=== PATIENT | female | born 1990 | race Two or more races ===

== ENCOUNTER 2022-05-14 10:37 | Emergency (ER) | payer OTHER ==
[~2022-05-14] VITALS: Ht 162.6 cm; Wt 83.9 kg
[2022-05-14] MEDS ORDERED: PRENA1 TRUE CO1 EACH (11:05)
== END 2022-05-14 15:18 | disposition home or self-care (01) ==
LOC: ER 10:37
DX: O20.9 Hemorrhage in early pregnancy, unspecified (principal); Z3A.09 9 weeks gestation of pregnancy; J45.909 Unspecified asthma, uncomplicated

== ENCOUNTER 2022-06-13 08:34 | Outpatient (CLI) | payer OTHER ==
[~2022-06-13 08:34] MED LIST: PRENA1 TRUE CO1 EACH
== END 2022-06-13 09:35 | disposition home or self-care (01) ==
LOC: PRENATAL 08:34
PROVIDERS: ATTEND Obstetrics & Gynecology Maternal & Fetal Medicine
DX: O36.80X0 Pregnancy with inconclusive fetal viability, not applicable or unspecified (principal); Z3A.13 13 weeks gestation of pregnancy

== ENCOUNTER 2022-08-01 16:42 | Emergency (ER) | payer OTHER ==
[~2022-08-01] VITALS: Ht 162.6 cm; Wt 89.8 kg
== END 2022-08-01 19:31 | disposition home or self-care (01) ==
LOC: ER 16:42
DX: G44.209 Tension-type headache, unspecified, not intractable (principal)

== ENCOUNTER 2022-08-02 08:05 | Outpatient (CLI) | payer OTHER | END 2022-08-02 09:15 | disposition home or self-care (01) | LOC: PRENATAL 08:05 | PROVIDERS: ATTEND Obstetrics & Gynecology Maternal & Fetal Medicine | DX: O35.9XX0 Maternal care for (suspected) fetal abnormality and damage, unspecified, not applicable or unspecified (principal); O35.3XX0 Maternal care for (suspected) damage to fetus from viral disease in mother, not applicable or unspecified; Z3A.21 21 weeks gestation of pregnancy ==

== ENCOUNTER 2022-10-08 19:21 | Outpatient (CLI) | payer OTHER | END 2022-10-09 18:11 | disposition home or self-care (01) | LOC: OBS/DEL 19:21 | PROVIDERS: ATTEND Obstetrics & Gynecology | DX: O26.893 Other specified pregnancy related conditions, third trimester (principal); N89.8 Other specified noninflammatory disorders of vagina; Z3A.30 30 weeks gestation of pregnancy ==

== ENCOUNTER 2022-11-12 14:27 | Outpatient (CLI) | payer OTHER | END 2022-11-13 09:59 | disposition home or self-care (01) | LOC: OBS/DEL 14:27 | PROVIDERS: ATTEND Obstetrics & Gynecology | DX: O47.03 False labor before 37 completed weeks of gestation, third trimester (principal); Z3A.35 35 weeks gestation of pregnancy; Z20.822 Contact with and (suspected) exposure to COVID-19 ==

== ENCOUNTER 2022-11-14 01:39 | Outpatient (CLI) | payer OTHER | END 2022-11-14 09:33 | disposition home or self-care (01) | LOC: OBS/DEL 01:39 | PROVIDERS: ATTEND Obstetrics & Gynecology | DX: O47.03 False labor before 37 completed weeks of gestation, third trimester (principal); Z3A.35 35 weeks gestation of pregnancy ==

== ENCOUNTER 2022-12-09 18:03 | Outpatient (CLI) | payer OTHER | END 2022-12-10 15:06 | disposition home or self-care (01) | LOC: OBS/DEL 18:03 | PROVIDERS: ATTEND Obstetrics & Gynecology | DX: O47.1 False labor at or after 37 completed weeks of gestation (principal); Z3A.39 39 weeks gestation of pregnancy ==

== ENCOUNTER 2022-12-11 18:35 | Inpatient (IN) | payer OTHER ==
[~2022-12-11] VITALS: Ht 162.6 cm; Wt 98.4 kg
== END 2022-12-13 12:50 | disposition home or self-care (01) | DRG 788 ==
LOC: LDR 18:35 → OB/GYN 18:35
PROVIDERS: ADMIT Obstetrics & Gynecology; ATTEND Obstetrics & Gynecology
PROC: 4A1HXCZ Monitoring of Products of Conception, Cardiac Rate, External Approach (ICD-10-PCS; 2022-12-11)
PROC: 10D00Z1 Extraction of Products of Conception, Low, Open Approach (ICD-10-PCS; principal; 2022-12-11 19:00)
DX: O82 Encounter for cesarean delivery without indication (principal); Z3A.39 39 weeks gestation of pregnancy; Z37.0 Single live birth; Z20.822 Contact with and (suspected) exposure to COVID-19